=== PATIENT | female | born 1955 | race Caucasian/White ===

== ENCOUNTER 2018-06-16 11:02 | Observation (INO) ==
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
[2018-06-16 12:21] LABS: Baso # (Auto) 0.1 th/mm3 (0.0-0.2); Baso % (Auto) 0.6 % (0.0-2.0); Eos % (Auto) 0.1 % (0.0-4.0); Hematocrit 43.2 % (35.0-46.0); Hemoglobin 14.5 gm/dL (11.6-15.3); Lymph # (Auto) 1.1 th/mm3 (1.0-4.8); Mean Corpuscular HGB Conc 33.7 % (32.0-36.0); Mean Corpuscular Hemoglobin 28.9 pg (27.0-34.0); Mean Corpuscular Volume 85.9 fL (80.0-100.0); Mean Platelet Volume 8.1 fL (7.0-11.0); Mono # (Auto) 0.2 th/mm3 (0.0-0.9); Mono % (Auto) 1.9 % (0.0-8.0); Neut # (Auto) 8.3 th/mm3 (1.8-7.7); Neut % (Auto) 86.4 % (16.0-70.0); Platelet Count 221 th/mm3 (150-450); Red Blood Count 5.03 mil/mm3 (4.00-5.30); Red Cell Distribution Width 13.9 % (11.6-17.2); White Blood Count 9.6 th/mm3 (4.0-11.0)
[2018-06-16 12:28] LABS: Activated Partial Thrombo Time 25.5 sec (23.4-31.7); Prothrombin Time 10.6 sec (9.8-11.6)
[2018-06-16 12:35] LABS: Albumin 3.9 g/dL (3.4-5.0); Anion Gap 8 meq/L (5-15); Aspartate Aminotransferase 13 U/L (15-37); Blood Urea Nitrogen 23 mg/dL (7-18); Calcium 9.1 mg/dL (8.5-10.1); Carbon Dioxide 27.1 meq/L (21.0-32.0); Chloride 104 meq/L (98-107); Glomerular Filtration Rate 72 mL/min (>89); Glucose,Random 121 mg/dL (74-106); Potassium 3.9 meq/L (3.5-5.1); Sodium 139 meq/L (136-145)
[2018-06-16 12:39] LABS: Alanine Aminotransferase 20 U/L (10-53); Alkaline Phosphatase 89 U/L (45-117); Total Protein 7.7 g/dL (6.4-8.2)
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
[2018-06-16 14:55] LABS: Bilirubin,Urine Negative (Negative); Clarity,Urine Clear (Clear); Color,Urine Yellow (Yellw/Straw); Glucose,Urine (UA) Negative (Negative); Leukocyte Esterase,Urine Negative (Negative); Mucus,Urine Few /lpf (Occasional); Nitrite,Urine Negative (Negative)
[2018-06-16] MEDS ORDERED: Acetaminophen 325 MG Tablet PO PRN ×2 (15:54→20:35)
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
[2018-06-16 17:42] LABS: Folate 15.3 ng/mL (3.1-17.5); Free T4 (Free Thyroxine) 1.21 ng/dL (0.76-1.46); Thyroid Stimulating Hormone 0.976 uIU/mL (0.358-3.740)
[2018-06-16] MEDS ORDERED: Gadobutrol PF 7.5 MMOL/7.5 ML Vial (for RAD) IV.SIG ONE (18:52)
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
[2018-06-16] MEDS ORDERED: Sodium Chloride 0.9% 2 ML Flush PRN IV.FLUSH (20:38)
[2018-06-16] MEDS: Senna/Docusate Sodium 8.6/50 MG Tablet PO SCH (23:21)
[2018-06-16] MEDS: Sodium Chloride 0.9% 2 ML Flush BID IV.FLUSH SCH (23:24)
[2018-06-16 23:34] LABS: Amphetamine Screen,Urine Neg (Neg); Barbiturate Screen,Urine Neg (Neg); Cannabinoid Screen,Urine Neg (Neg); Cocaine Screen,Urine Neg (Neg)
[2018-06-16 23:35] LABS: Opiate Screen,Urine Neg (Neg)
[2018-06-17 08:44] LABS: Baso # (Auto) 0.1 th/mm3 (0.0-0.2); Baso % (Auto) 0.9 % (0.0-2.0); Eos # (Auto) 0.1 th/mm3 (0.0-0.4); Eos % (Auto) 0.8 % (0.0-4.0); Hematocrit 42.7 % (35.0-46.0); Hemoglobin 14.7 gm/dL (11.6-15.3); Lymph # (Auto) 1.7 th/mm3 (1.0-4.8); Lymph % (Auto) 18.1 % (9.0-44.0); Mean Corpuscular HGB Conc 34.3 % (32.0-36.0); Mean Corpuscular Hemoglobin 29.1 pg (27.0-34.0); Mean Corpuscular Volume 84.7 fL (80.0-100.0); Mean Platelet Volume 7.9 fL (7.0-11.0); Mono # (Auto) 0.8 th/mm3 (0.0-0.9); Mono % (Auto) 9.1 % (0.0-8.0); Neut # (Auto) 6.5 th/mm3 (1.8-7.7); Neut % (Auto) 71.1 % (16.0-70.0); Platelet Count 219 th/mm3 (150-450); Red Blood Count 5.04 mil/mm3 (4.00-5.30); White Blood Count 9.2 th/mm3 (4.0-11.0)
[2018-06-17 09:03] LABS: Calcium 8.9 mg/dL (8.5-10.1); Carbon Dioxide 27.9 meq/L (21.0-32.0); Potassium 3.6 meq/L (3.5-5.1)
[2018-06-17] MEDS: Sodium Chloride 0.9% 2 ML Flush BID IV.FLUSH SCH ×2 (09:54→22:14)
[2018-06-17] MEDS: Senna/Docusate Sodium 8.6/50 MG Tablet PO SCH ×2 (09:55→22:15)
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
[2018-06-17] MEDS ORDERED: Metoprolol Tartrate 50 MG Tablet PO STA (12:13)
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
--- NOTE | 2018-06-17 15:21 | ECG ---
Date Performed: 06/16/2018 Time Performed: 11:33:59 PTAGE: 62 years EKG: Sinus rhythm WITH OCCASIONAL SUPRAVENTRICULAR PREMATURE COMPLEXES POSSIBLE RIGHT ATRIAL ENLARGEMENT POSSIBLE LEFT ATRIAL ENLARGEMENT BORDERLINE ECG NO PREVIOUS TRACING DOCTOR: Logan Alvarez Interpretating Date/Time 06/17/2018 15:19:43
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
[2018-06-17] MEDS: clonazePAM 0.5 MG Tablet PO SCH ×2 (15:40→22:14)
[2018-06-17] MEDS: ARIPiprazole 5 MG Tablet PO SCH (15:54)
--- NOTE | 2018-06-17 22:01 | MG ---
cc: Devin Gilliam MD, PhD TEST NUMBER: [id number] TECHNIQUE: A 17-channel EEG. DESCRIPTION: Background rhythm reveals a symmetrical alpha rhythm, frequency 8 Hz. There is some eye movement and muscle artifact present. No lateralizing features are identified. No epileptiform features are seen. Photic results in a normal driving response. INTERPRETATION: Normal electroencephalogram. Devin Gilliam MD, PhD TC/yusef , 09:28 PM , 09:32 PM
[2018-06-17] MEDS: Metoprolol Tartrate 50 MG Tablet PO SCH (22:14)
[2018-06-18] MEDS: clonazePAM 0.5 MG Tablet PO SCH (05:31)
--- NOTE | 2018-06-18 06:12 | ECG ---
Date Performed: 06/17/2018 Time Performed: 12:00:09 PTAGE: 62 years EKG: Marked baseline artifact POSSIBLE ATRIAL FIBRILLATION WITH RAPID VENTRICULAR RESPONSE NONSP ECIFIC ST & T-WAVE ABNORMALITY ABNORMAL ECG Compared to prior electrocardiogram, Possible atrial fibr illation is present although baseline artifact is present also. DOCTOR: Brian Lennon Interpretating Date/Time 06/18/2018 06:10:38
[2018-06-18 08:04] VITALS: BP 117/57; RESP 16; TEMP 98; O2SAT 98
[2018-06-18] MEDS: Senna/Docusate Sodium 8.6/50 MG Tablet PO SCH (09:29)
[2018-06-18] MEDS: ARIPiprazole 5 MG Tablet PO SCH (09:30)
[2018-06-18] MEDS: Sodium Chloride 0.9% 2 ML Flush BID IV.FLUSH SCH (09:31)
[2018-06-18] MEDS: Metoprolol Tartrate 50 MG Tablet PO SCH (09:31)
[2018-06-18 11:39] VITALS: PULSE 77
== END 2018-06-18 13:07 | disposition home or self-care (01) ==
LOC: NEDA 11:02 → NEPD 11:02 → NEPFCDU 16:40
PROVIDERS: ADMIT Hospitalist; ATTEND Hospitalist